=== PATIENT | female | born 1965 | race Caucasian/White ===

== ENCOUNTER 2016-12-29 09:28 | Day surgery (SDC) | payer BC ==
[~2016-12-29 09:28] MED LIST: Lactated Ringers 1,000 ML IV SCH; Lidocaine 1%/Sod Bicarbonate in NS 8.4% 1 ML Syringe IV PRN; Sodium Chloride 0.9% 10 ML Syringe FLUSH PRN
--- NOTE | 2016-12-29 09:59 | PCM.PREANE ---
Preanesthetic Assessment - Anesthesia/Transfusion/Family Hx Anesthesia History: Prior Anesthesia Without Reaction Family History of Anesthesia Reaction: No Transfusion History: No Prior Transfusion(s) Intubation History: Unknown - Review of Systems General: No Symptoms Pulmonary: No Symptoms (History of Asthma last used inhaler this am/ Smoker: Quit smoking 2015 but currently vapes.. ETOH: drinks occasionally) Cardiovascular: No Symptoms (History of HTN), Palpitations, Dyspnea on Exertion Gastrointestinal: No Symptoms (GERD on occasion) Neurological: No Symptoms Other: Reports: Easy Bruising, Sinus Problem (Allergic rhinits) - Physical Assessment NPO Status Date: 12/28/16 NPO Status Time: 23:59 Pulse: 73 O2 Sat by Pulse Oximetry: 94 Respiratory Rate: 16 Blood Pressure: 126/94 Temperature: 37.0 C Height: 1.52 m Weight: 75 kg ASA Class: 2 Mental Status: Alert & Oriented x3 Airway Class: Mallampati = 2 Dentition: Reports: Normal Dentition, Caries Thyro-Mental Finger Breadths: 3 Mouth Opening Finger Breadths: 3 ROM/Head Extension: Full Lungs: Clear to Auscultation, Normal Respiratory Effort, Decreased Breath Sounds Cardiovascular: Regular Rate, Regular Rhythm, No Murmurs - Allergies Allergies/Adverse Reactions: Allergies Allergy/AdvReac Type Severity Reaction Status Date / Time latex Allergy Rash Verified 12/28/16 14:56 Penicillins Allergy Cannot Verified 12/28/16 14:56 Remember - Anesthesia Plan Pre-Op Medication Ordered: Beta Gunner Beta Gunner: Metoprolol Med Last Dose Date: 12/28/16 Med Last Dose Time: 19:00 - Acknowledgements Anesthesia Type Planned: MAC Pt an Appropriate Candidate for the Planned Anesthesia: Yes Alternatives and Risks of Anesthesia Discussed w Pt/Guardian: Yes Pt/Guardian Understands and Agrees with Anesthesia Plan: Yes PreAnesthesia Questionnaire HEENT History: Reports: Allergic Rhinitis Cardiovascular History: Reports: High Cholesterol, Hypertension Respiratory History: Reports: Asthma Gastrointestinal History: Reports: Other (See Below) Other Gastrointestinal History: hemorrhoid Genitourinary History: Reports: Other (See Below) Other Genitourinary History: right flank pain, cystocele, rectocele [employer] History: Reports: Other (See Below) Other OB/BYN History: vaginosis Musculoskeletal History: Reports: None Neurological History: Reports: None Psychiatric History: Reports: None Endocrine/Metabolic History: Reports: None Hematologic History: Reports: None Immunologic History: Reports: None Oncologic (Cancer) History: Reports: None Dermatologic History: Reports: None - Past Surgical History HEENT Surgical History: Reports: Naso-Sinus Surgery Cardiovascular Surgical History: Reports: None Respiratory Surgical History: Reports: None GI Surgical History: Reports: None Female Surgical History: Reports: None Male Surgical History: Reports: None Endocrine Surgical History: Reports: None Neurological Surgical History: Reports: None Musculoskeletal Surgical History: Reports: None Oncologic Surgical History: Reports: None Dermatological Surgical History: Reports: None - SUBSTANCE USE Smoking Status *Q: Current Every Day Smoker Tobacco Use Within Last Twelve Months: Other (See Below) Other Tobacco Use Within Last Twelve Months: vapes Recreational Drug Use History: No - HOME MEDS Home Medications: Home Meds Albuterol Sulfate [Proair Hfa] 2 puff INH Q4H PRN 12/28/16 [History] Hydrochlorothiazide [Hydrochlorothiazide] 25 mg PO DAILY 12/28/16 [History] Metoprolol Tartrate [Metoprolol Tartrate] 25 mg PO BID 12/28/16 [History] - CURRENT (IN HOUSE) MEDS Current Meds: Current Medications Lactated Ringer's (Ringers, Lactated) 1,000 mls @ 125 mls/hr IV ASDIRECTED BENNIE Stop: 12/29/16 23:00 Lidocaine/Sodium Bicarbonate (Buffered Lidocaine 1% In Ns 8.4%) 0.25 ml IV ONETIME PRN PRN Reason: Prior to IV Start Stop: 12/29/16 18:00 Sodium Chloride (Saline Flush) 10 ml FLUSH ASDIRECTED PRN PRN Reason: Keep Vein Open Stop: 12/29/16 18:00
[2016-12-29] MEDS ORDERED: Albuterol 0.083% 2.5 MG/3 ML Neb Soln NEB ONE (10:28)
[2016-12-29] MEDS ORDERED: Propofol 200 MG/20 ML SDV ONE ×3 (11:06→11:36)
[2016-12-29] MEDS ORDERED: Lidocaine 1% 4 ML ONE (11:06)
--- NOTE | 2016-12-29 11:32 | PCM.OPNOTE ---
- General Post-Op/Procedure Note Date of Surgery/Procedure: 12/29/16 Operative Procedure(s): Colonoscopy with cold forceps polypectomy within the sigmoid 6 Findings: Multiple diminutive hyperplastic appearing polyps with sigmoid and a few early diverticuli of the sigmoid Pre Op Diagnosis: Screening colonoscopy Post-Op Diagnosis: 1. Multiple sigmoid polyps. 2. Sigmoid diverticulosis Anesthesia Technique: MAC, Moderate Sedation Primary Surgeon: Jack Blanco Pathology: Multiple sigmoid polyps EBL in mLs: 0 Complications: None Condition: Good Free Text/Narrative:: After adequate IV sedation and analgesia with monitoring the patient was placed on her left side. Perianal inspection and digital rectal examination were performed and were normal. A lubricated colonoscope was inserted into the rectum and advanced to the cecum without difficulty. The bowel preparation was adequate. The cecum ascending colon descending and transverse colons were endoscopically normal with no mass lesions or inflammatory changes. The sigmoid had a few scattered uncomplicated early diverticuli. In the distal sigmoid there were 6 small diminutive flat hyperplastic appearing polyps which were removed with cold forceps. The rectum in both views was unremarkable. Photographs were taken for the patient and for the medical record. Air was removed as I finished the procedure which she tolerated well. I recommend a follow-up colonoscopy in a year or 2.
--- NOTE | 2016-12-29 11:33 | PCM48HPAN ---
Post Anesthesia Note - EVALUATION WITHIN 48HRS OF ANESTHETIC Vital Signs in Normal Range: Yes Patient Participated in Evaluation: Yes Respiratory Function Stable: Yes Airway Patent: Yes Cardiovascular Function Stable: Yes Hydration Status Stable: Yes Pain Control Satisfactory: Yes Nausea and Vomiting Control Satisfactory: Yes Mental Status Recovered: Yes
== END 2016-12-29 12:00 | disposition home or self-care (01) ==
LOC: JD.SDS 09:28
PROVIDERS: ATTEND Surgery
DX: K63.5 Polyp of colon (principal); K57.30 Diverticulosis of large intestine without perforation or abscess without bleeding; K21.9 Gastro-esophageal reflux disease without esophagitis; K64.9 Unspecified hemorrhoids; I10 Essential (primary) hypertension; J45.909 Unspecified asthma, uncomplicated; E78.00 Pure hypercholesterolemia, unspecified; N81.4 Uterovaginal prolapse, unspecified; Z88.0 Allergy status to penicillin; Z91.040 Latex allergy status; Z79.899 Other long term (current) drug therapy; Z98.890 Other specified postprocedural states; Z80.0 Family history of malignant neoplasm of digestive organs; Z87.891 Personal history of nicotine dependence
CPT/HCPCS: 45380; 94640; J7120; 00810; J2704